=== PATIENT | male | born 1935 | race Caucasian/White ===

== ENCOUNTER 2018-02-01 10:34 | Outpatient (CLI) | payer MEDICARE ==
[~2018-02-01] VITALS: Ht 177.8 cm; Wt 77.3 kg
--- NOTE | ~2018-02-01 | OP ---
PATIENT NAME: JA HATCH MEDICAL RECORD: [id number] :34 LOCATION:D.CAT ADMISSION DATE: SURGEON: GLENNA RAZO MD DATE OF OPERATION: 02/01/2018 PROCEDURE: Left heart catheterization, selective coronary angiography, right femoral artery approach. CATHETERS: A 5-Singaporean sheath, 5/4 left and right Benson. The procedure was well tolerated. We proceeded immediately to do PTCA stenting after the procedure was finished. FINDINGS: Left ventriculography in the 30-degree BO view shows severe diffuse global hypokinesis. Overall, LV function is reduced. Estimated EF 20%. CORONARY ANATOMY: LEFT MAIN: Left main fills, which showed about 30% distal stenosis. LAD: Fills for a short period of time then proceeding to be competitive flow. CIRCUMFLEX: Fills for a short period of time, is totally occluded. RIGHT CORONARY ARTERY: Totally occluded in its mid portion. SAPHENOUS VEIN GRAFT: Saphenous vein graft to the right shows a patent stent, but was typical diffuse distal disease, diabetic type. CIRCUMFLEX: Circumflex graft has an ostial stenosis about 90%, fairly discrete. SMITH to LAD is widely patent. IMPRESSION: Severe cardiomyopathy. PLAN: Intervention of the saphenous graft to the circumflex momentarily. DESCRIPTION OF PROCEDURE: A 5-Singaporean sheath was exchanged for a 6-Singaporean sheath. A JR4 guiding catheter provided good guide catheter support followed by 300-cm Whisper wire, which was placed across the totally occluded saphenous vein graft, circumflex, distal portion of this vessel. Stent deployed was a 3.0 x 15 mm Integrity nondrug eluting stent up to 14 atmospheres. Final angiography shows excellent resolution of a 90% plus stenosis, no significant residual. VIBHA flow was 3 throughout the procedure. Plavix was loaded in the lab. Sheath closed with Exoseal device. TRANSINT:[id number] Voice Confirmation ID: [id number] DOCUMENT ID: [id number] GLENNA ARZO MD at 1412 CC: [id number] DICTATION DATE: 02/01/18 1405 CLINICAL NURSING INTERN: 02/01/18 1440 DEP CLI 02/01/18 [id number] [place] [address]
--- NOTE | ~2018-02-01 | HEMODYNAMI ---
PATIENT:JA HATCH MEDICAL RECORD: [id number] : 34 LOCATION:DRupalCAT ADMISSION DATE: 02/01/18 Generatedon:02/01/201814:04 Patient name: JA HATCH Patient #: [id number] SSN: : [id number] Date of study: 02/01/2018 Page: Of Hemodynamic Procedure Report Patient Data Patient Demographics Procedure consent was obtained First Name: JA Gender: Male Last Name: HOLDEN : 1935 [facility] Initial: E Age: 82 year(s) Patient #: [id number] Race: Additional ID: [id number] Contact details Address: [address] [place] [address] [place] State: [place] City: [place] Zip code: [address] Past Medical History History of disease Date Diagnosis Comments CAD Allergies Allergen Reaction Date Comments Reported Penicillins 06/03/2015 Vancomycin 06/03/2015 Other allergy 06/03/2015 WARFARIN, CEFEPINE Other allergy 02/01/2018 cefepime, coumadin, PCN, Vancomycin Admission Admission Data Admission Date: 02/01/2018 Admission Time: 10:34 Height (in.): 61 BSA: 1.77 (m2) Height (cm.): 154.94 BMI: 32.5 (kg/m2) Weight (lbs.): 172 Weight (kg.): 78.02 Procedure Procedure Types Cath Procedure Diagnostic Procedure LHC LHC w/Coronaries w/Grafts Sedation Charges Moderate Sedation up to 15 minutes PCI Procedure Coronary Stent AMI/SVG/ENGINEERING DRAWINGS CHECKER PTCA or Stent SVG-BMS/LISA Initial Procedure Description Procedure Date Procedure Date: 02/01/2018 Procedure Start Time: 13:29 Procedure End Time: 13:59 Procedure Staff Name Function Berto Whittaker MD Performing Physician Eliza Burns RT Monitor Goldie Rivera RN Nurse Cary Osborne RT Scrub Procedure Data Cath Procedure Fluoroscopy Diagnostic fluoroscopy Total fluoroscopy Time: 9.8 time: 9.8 min min Diagnostic fluoroscopy Total fluoroscopy dose: dose: 1355 mGy 1355 mGy Contrast Material Contrast Material Type Amount (ml) Isovue 300 151 Entry Location Entry Primary Successful Side Size Upsize Upsize Entry Closure Succes sful Closure Location (Fr) 1 (Fr) 2 (Fr) Remarks Device Remarks Femoral Right 5 Fr 6 Fr artery Short Estimated blood loss: 10 ml Diagnostic catheters Device Type Used For End Catheter Placement MULTIPACK JL 4.0 5Fr Procedure catheter MULTIPACK 3DRC 5Fr Procedure catheter MULTIPACK Pigtail 5 Fr Ventriculography catheter Procedure Complications No complications Procedure Medications Medication Administration Route Dosage Oxygen NC 3 l/min Lidocaine 2% added to field 20 Heparin Flush Bag added to field 2 bags (1000units/500ml NS) 0.9% NaCl I.V. 100 ml/hr Versed I.V. 0.5 mg Fentanyl I.V. 25 mcg Heparin Bolus I.V. 4000 units Integrilin (Bolus I.V. 6.8 ml 2mg/ml) Versed I.V. 0.5 mg Fentanyl I.V. 25 mcg Plavix P.O. 600 mg Hemodynamics Rest BSA: 1.77 (m2) O2 Consumption: Estimated: 197.31 (ml/min) O2 Consumption indexed : Estimated:111.47 (ml/min/m) Heart Rate: 64 (bpm) Pressure Samples Time Site Value (mmHg) Purpose Heart Use Rate(bpm) 13:43 LV 121/22,22 Snapshot 67 13:44 AO 112/57(80) Pullback 58 Gradients Valve Time Site Site 2 Mean SEP/DFP Peak To Heart Use 1 (mmHg) (sec/min) Peak Rate (mmHg) (bpm) Aortic 13:44 LV AO 2 8 58 112/57(80) Calculations Valve P-P Mean Valve Index Valve Source Name Gradient Area Flow (cm2) Aortic 2 2 Snapshots Pre Cath Intra NCS Post Cath Vital Signs Time Heart Resp SPO2 etCO2 NIBP (mmHg) Rhythm Pain Sedation Rate (ipm) (%) (mmHg) Status Level (bpm) 13:20:25 63 19 96 19.4 150/63(117) NSR 0 (11) 10(A) , No pain 13:24:47 61 23 95 9.7 143/63(121) NSR 0 (11) 10(A) , No pain 13:29:11 61 18 95 14.2 141/55(107) NSR 0 (11) 10(A) , No pain 13:33:36 61 17 91 0 118/56(93) NSR 0 (11) 9(A) , No pain 13:37:50 65 19 92 0 122/60(107) NSR 0 (11) 9(A) , No pain 13:42:06 60 19 95 20.9 118/61(99) NSR 0 (11) 9(A) , No pain 13:46:22 63 15 92 0 117/58(105) NSR 0 (11) 9(A) , No pain 13:50:40 63 17 93 19.4 133/53(98) NSR 0 (11) 9(A) , No pain 13:55:00 61 16 95 12 139/57(108) NSR 0 (11) 9(A) , No pain 13:59:20 61 16 96 11.2 144/68(104) NSR 0 (11) 10(A) , No pain Medications Time Medication Route Dose Verified Delivered Reason Notes Effectiveness by by 13:03:06 Oxygen NC 3 Berto Amezcua used for l/min St Diomedes Rivera RN procedure 13:25:12 Lidocaine 2% added 20ml Berto Robertsonory for local to vial [facility] anesthetic field MD LOREDO 13:25:19 Heparin Flush added 2 Berto Berto used for Bag to bags [facility] procedure (1000units/500ml field MD LOREDO NS) 13:25:28 0.9% NaCl I.V. 100 Berto Amezcua Per physician ml/hr [facility] Diomedes Rivera RN, MD 13:30:36 Versed I.V. 0.5 Berto [place] for sedation mg [facility] Diomedes Rivera RN, MD 13:30:42 Fentanyl I.V. 25 Berto Buffie for sedation mcg [facility] Diomedes Rivera RN, MD 13:36:33 Versed I.V. 0.5 Berto [place] for sedation mg [facility] Diomedes Rivera RN, MD 13:36:36 Fentanyl I.V. 25 Berto Amezcua for sedation mcg [facility] Diomedes Rivera RN, MD 13:47:14 Heparin Bolus I.V. 4000 Berto [place] for verifi ed units St Diomedes Rivera RN anticoagulation with dr MD addison 13:48:28 Integrilin I.V. 6.8 Berto [place] for Wasted (Bolus 2mg/ml) ml St Diomedes Rivera RN antiplatelet 3.2 ml MD therapy of vial 14:00:27 Plavix P.O. 600 Berto Amezcua for mg [facility] Diomedes Rivera RN antiplatelet MD therapy Procedure Log Time Note 13:01:51 Patient Height : 61 inches 13:02:02 Patient Weight : 172 lbs 13:02:24 Diagnostic Cath status Elective 13:02:27 Cary Dylon RT(R) sent for patient. Start room use. 13:02:28 Time tracking: Regular hours (M-F 7:00 - 5:00) 13:02:33 Plan of Care:Hemodynamics will remain stable., Cardiac rhythm will remain stable., Comfort level will be maintained., Respiratory function will remain adequate., Patient/ family verbilizes understanding of procedure., Procedure tolerated without complication., Recovers from procedure without complications.. 13:02:49 Patient received from Pre/Post Procedure Room to CCL 2 Alert and oriented. Tansferred to table in Supine position. 13:02:50 Warm blankets applied, and andry hugger turned on for patient comfort. 13:03:06 Oxygen 3 l/min NC was administered by Goldie Rivera RN; used for procedure; 13:08:41 Correct patient and procedure confirmed by team. 13:08:43 Signed procedure consent form obtained from patient. 13:08:44 ECG and BP/O2 sat monitors applied to patient. 13:08:59 H&P Date Dictated: 01/26/2018 Within 30 days and on chart., H&P Addendum completed by physician on day of procedure. (MUST COMPLETE FOR ALL OUTPATIENTS). 13:09:01 Pre-procedure instructions explained to patient. 13:09:05 Family unavailable. 13:09:50 Patient allergic to Other allergycefepime, coumadin, PCN, Vancomycin 13:09:53 Is the patient allergic to Iodine/contrast media? No. 13:10:10 Was the patient premedicated? Yes 13:10:11 Is patient on blood thinner?Yes 13:10:35 eloquis on 01/29/18 13:10:38 Patient diabetic? Yes. 13:19:11 Vital chart was started 13:19:23 Baseline sample Acquired. 13:19:30 Rhythm: sinus rhythm 13:19:32 Full Disclosure recording started 13:19:49 If diabetic: On Metformin? Yes 13:19:52 If on Metformin: Last Dose? 01/30/2018 13:20:58 Snore? Yes 13:21:00 Sleep apnea? No 13:21:11 Airway obstruction? Yes Emphazema 13:21:16 Dentures? Yes in tight 13:21:21 Patient pain scale 0/10 ?. 13:21:31 IV patent on arrival in left forearm with 0.9% NaCl at [facility]. 13:25:12 Lidocaine 2% 20ml vial added to field was administered by Berto Whittaker MD; for local anesthetic; 13:25:19 Heparin Flush Bag (1000units/500ml NS) 2 bags added to field was administered by Berto Whittaker MD; used for procedure; 13:25:28 0.9% NaCl 100 ml/hr I.V. was administered by Goldie Rivera RN; Per physician; 13:28:39 Right groin area was prepped with chlora-prep and draped in sterile fashion 13:28:40 Alarms reviewed by R. N. 13:28:41 Sharps counted by scrub and verified by R.N. 13:28:41 Physician paged 13:28:42 Physician arrived 13:28:43 --------ALL STOP TIME OUT------ 13:28:47 Final Timeout: patient, procedure, and site verified with staff and physician. All members of the team are in agreement. 13:28:49 Right groin site verified by team. 13:28:55 Physical assessment completed. ASA score P 2 - A patient with mild systemic disease as per Berto Whittaker MD. 13:28:59 Sedation plan: IV Moderate Sedation Medication:Versed, Fentanyl 13:29:02 Use device set Femoral Dx 13:29:03 ACIST Syringe (48894) opened to sterile field. 13:29:04 Bag Decanter (2002S) opened to sterile field. 13:29:04 Medline Cath Pack ([id number]) opened to sterile field. 13:29:05 DIAGNOSTIC WIRE .035 260cm J wire (264867) opened to sterile field. 13:29:06 ACIST Hand Control (76620) opened to sterile field. 13:29:07 ACIST Manifold (15890) opened to sterile field. 13:29:07 DIAGNOSTIC Multipack 5Fr catheter set ([id number]) opened to sterile field. 13:29:09 Tegaderm 4 x 4 (1626W) opened to sterile field. 13:29:10 PERCUTANEOUS ENTRY 19GA needle opened to sterile field. 13:29:13 SHEATH Prelude 5Fr 0.035 (BRO-0L-84-035) opened to sterile field. 13:29:16 Procedure started. 13:29:29 Zero performed for pressure channel P1 13:29:40 Local anesthetic to right femoral artery with Lidocaine 2% by Berto Whittaker MD.INITIAL ACCESS ONLY 13:29:50 A 5 Fr sheath was inserted into the Right Femoral artery 13:30:36 Versed 0.5 mg I.V. was administered by Goldie Rivera RN; for sedation; 13:30:42 Fentanyl 25 mcg I.V. was administered by Goldie Rivera RN; for sedation; 13:30:47 A MULTIPACK JL 4.0 5Fr catheter was advanced over the wire and used for Procedure. 13:31:11 LCA angiography performed. 13:31:17 Catheter removed. 13:31:28 A MULTIPACK 3DRC 5Fr catheter was advanced over the wire and used for Procedure. 13:33:11 RCA angiography performed. 13:33:40 SVG to Circ angiography performed. 13:34:35 SMITH to LAD angiography performed. 13:36:33 Versed 0.5 mg I.V. was administered by Goldie Rivera RN; for sedation; 13:36:36 Fentanyl 25 mcg I.V. was administered by Goldie Rivera RN; for sedation; 13:40:14 SVG to RCA angiography performed. 13:41:18 Catheter removed. 13:41:49 A MULTIPACK Pigtail 5 Fr catheter was advanced over the wire and used for Ventriculography. 13:41:57 LV angiography performed. 13:44:40 EF : 20 % 13:44:55 Proceeding to intervention. 13:47:14 Heparin Bolus 4000 units I.V. was administered by Goldie Rivera RN; for anticoagulation; verified with dr addison 13:47:18 SHEATH 6Fr Prelude ([id number]) opened to sterile field. 13:47:19 WHISPER 300cm guide wire ([id number]) opened to sterile field. 13:47:20 INFLATOR Merit BasixCompak (IQ7505) opened to sterile field. 13:47:24 GUIDE 6FR JR 4.0 catheter (RN0XR35) opened to sterile field. 13:47:38 Sheath upsized to a 6 Fr Short. 13:47:49 6 Fr JR4 guide catheter was inserted over the wire 13:47:54 whisp wire advanced. 13:48:28 Integrilin (Bolus 2mg/ml) 6.8 ml I.V. was administered by Goldie Rivera RN; for antiplatelet therapy; Wasted 3.2 ml of vial 13:53:23 Place stent Inflation Number: 1 A INTEGRITY OTW 3.0 X 15 stent ([id number]) was prepped and advanced across the Undefined2. The stent was deployed at 14 JOSE CRUZ for 0:12 (min:sec). 13:54:11 EXOSEAL 6Fr (EX600) opened to sterile field. 13:55:44 Wire removed. 13:55:44 Guide catheter removed. 13:55:49 Procedure ended.(Physican Out) 13:56:00 Fluoroscopy time 09.80 minutes. 13:56:04 Fluoroscopy dose: 1355 mGy 13:56:04 Flurop Dose total: 1355 13:56:19 Contrast amount:Isovue 300 151ml. 13:56:21 Sharps counted by scrub and verified by R.N. 13:56:27 Insertion/operative site no bleeding no hematoma. 13:56:33 Post right femoral artery:stable 13:56:38 Post Procedure Pulses reassessed and unchanged 13:56:42 Post procedure rhythm: unchanged. 13:56:46 Estimated blood loss: 10 ml 13:56:48 Post procedure instruction explained to patient.Patient verbalizes understanding. 13:57:08 Procedure type changed to Cath procedure, Diagnostic procedure, LHC, LHC w/Coronaries w/Grafts, Sedation Charges, Moderate Sedation up to 15 minutes, PCI procedure, Coronary Stent, AMI/SVG/ENGINEERING DRAWINGS CHECKER PTCA or Stent, SVG-BMS/LISA Initial 13:57:22 Procedure and supply charges have been captured, reviewed, submitted and are correct. 13:59:27 Procedure Complication : No complications 13:59:30 Vital chart was stopped 13:59:30 See physician's report for complete and final results. 13:59:32 Report given to Pre/Post Procedure Room. 13:59:38 Patient transfered to Pre/Post Procedure Room with Stretcher. 13:59:40 Procedure ended. 13:59:40 Full Disclosure recording stopped 13:59:44 End room use (Document Last) 14:00:27 Plavix 600 mg P.O. was administered by Goldie Rivera RN; for antiplatelet therapy; Intervention Summary Intervention Notes Time ActionType Lesion and Equipment Action# Pressure Duration Attributes Used 13:53:23 Place stent Undefined2 INTEGRITY 1 14 00:13 OTW 3.0 X 15 stent ([id number]) Device Usage Item Name Manufacture Quantity Catalog Number Hospital Part Current M inimal Lot# / Charge Number Stock Stock Serial# Code ACIST Syringe Acist 1 68802 520676 061663 141569 2 0 (95667) Medical Systems Inc Bag Decanter Microtek 1 2001S 266216 55762 806688 5 () Medical Inc. Medline Cath Cardinal 1 [id number] 950272 63956 154576 5 Pack Health ([id number]) DIAGNOSTIC WIRE St [facility]arshad 1 790276 956849 438380 689280 3 0 .035 260cm J wire (883141) ACIST Hand Acist 1 58887 883007 017803 394110 5 Control (65381) Medical Systems Inc ACIST Manifold Acist 1 76045 072860 644105 526202 5 (71876) Medical Systems Inc DIAGNOSTIC Cardinal 1 [id number] 866061 41586 875422 3 0 Multipack 5Fr Health catheter set (DD7946) Tegaderm 4 x 4 3M 1 1626W 926236 781330 655231 5 (1626W) PERCUTANEOUS Cook Medical 1 Z63581 016139 834452 5 ENTRY 19GA needle SHEATH Prelude Merit 1 WYN-6V-21-035 250234 549102 046464 5 5Fr 0.035 Medical (RJR-5Y-19-035) MULTIPACK JL Cardinal 1 333381 5 4.0 5Fr Health catheter MULTIPACK 3DRC Cardinal 1 651633 5 5Fr catheter Health MULTIPACK Cardinal 1 546418 5 Pigtail 5 Fr Health catheter SHEATH 6Fr Merit 1 [id number] 365453 500040 463946 5 Prelude Medical ([id number]) WHISPER 300cm Cifuentes 1 [id number] 671494 826827 066730 5 guide wire Vascular ([id number]) INFLATOR Merit Merit 1 KW0516 469373 825976 885715 1 5 [facility] (ZF8234) GUIDE 6FR JR Medtronic 1 [id number] 272215 37958 945264 1 4.0 catheter ([id number]) INTEGRITY OTW Medtronic 1 [id number] 242317 620643 5 [id number] 3.0 X 15 stent ([id number]) EXOSEAL 6Fr Cardinal 1 EX600 193974 444614 338280 1 0 (EX600) Health Signature Audit [place] Stage Time Signature Unsigned Intra-Procedure 02/01/2018 Eliza Burns 2:04:19 PM RT(R) Signatures Monitor : Eliza Burns Signature : RT Date : Time : [address] [address]
[~2018-02-01 10:34] MED LIST: BAYER CHEWABLE81 MG PO; CINNAMON500 MG PO; FISH OIL 1,2001 CAP PO; GLIPIZIDE10 MG PO; GLUCOPHAGE1000 MG PO; LANTUS SOL100 UNIT/1 SQ; MULTIPLE VITAMI1 TA1 PO; NOVOLOG100 U/M1 SQ; RED YEAST RICE600 MG PO; VITAMIN B-1250 MG PO; ZANTAC150 MG PO
[2018-02-01] MEDS ORDERED: VITAMIN B-12500 MCG PO (10:52)
[2018-02-01] MEDS ORDERED: ELIQUIS2.5 MG PO (10:53)
[2018-02-01] MEDS ORDERED: FUROSEMIDE40 MG PO (10:53)
[2018-02-01] MEDS ORDERED: LISINOPRIL5 MG PO (10:54)
[2018-02-01] MEDS ORDERED: COREG6.25 MG PO (10:54)
[2018-02-01] MEDS ORDERED: LIPITOR40 MG PO (10:54)
[2018-02-01] MEDS ORDERED: ALDACTONE25 MG PO (10:54)
[2018-02-01 11:04] VITALS: BP 119/47; Ht 177.8 cm; Wt 77.3 kg
[2018-02-01 11:13] LABS: BASOPHILS 0 % (0-2); EOSINOPHILS 1.1 % (0-7); HEMATOCRIT 39.8 % (42.0-54.0); HEMOGLOBIN 13.6 g/dL (13.5-17.5); IMMATURE GRANULOCYTES 0.2 % (0-5); LYMPHOCYTES 27.6 % (15-50); MCH 33.3 pg (26.0-34.0); MCHC 34.2 g/dL (31.0-37.0); MCV 97.3 fL (80.0-100.0); NEUTROPHILS 61.1 % (40-80); PLATELET COUNT 169 10x3/uL (130-400); RBC 4.09 10x6/uL (4.20-6.10); RDW 12.7 % (11.5-14.5); WBC 8.9 10x3/uL (4.8-10.8)
[2018-02-01 11:21] LABS: ANION GAP 8.4 mmol/L (8-16); CARBON DIOXIDE 33.5 mmol/L (21.0-32.0); CREATININE - SERUM 1.1 mg/dL (0.6-1.3); POTASSIUM - SERUM 4.9 mmol/L (3.5-5.1)
== END 2018-02-01 18:12 | disposition home or self-care (01) ==
LOC: D.CATH 10:34
PROVIDERS: Internal Medicine Interventional Cardiology
DX: I25.119 Atherosclerotic heart disease of native coronary artery with unspecified angina pectoris (principal); E78.5 Hyperlipidemia, unspecified; I10 Essential (primary) hypertension; J44.9 Chronic obstructive pulmonary disease, unspecified; E11.9 Type 2 diabetes mellitus without complications; Z01.812 Encounter for preprocedural laboratory examination

== ENCOUNTER → 2018-10-12 08:48 | Outpatient (CLI) | payer MEDICARE ==
[2018-02-01 11:04] VITALS: BMI 24.4
[~2018-10-12 08:48] MED LIST changes: +ALDACTONE25 MG PO; +ANORO ELLIPTA1 EACH INH; +COREG6.25 MG PO; +ELIQUIS2.5 MG PO; +FUROSEMIDE40 MG PO; +LIPITOR40 MG PO; +LISINOPRIL5 MG PO; +OMEPRAZOLE40 MG PO; +SYNTHROID50 MCG PO; +TRESIBA FL100 UNIT/1 SC; +VITAMIN B-12500 MCG PO
--- NOTE | 2018-10-16 11:46 | ST ---
PATIENT:JA HATCH MEDICAL RECORD: [id number] SEX: M LOCATION:[facility] ORDER #: ADMISSION DATE: 10/12/18 AGE OF PATIENT: 83 REFERRING PHYSICIAN: INTERPRETING PHYSICIAN: RUBEN VASQUES MD DATE OF SERVICE: 10/12/2018 PROCEDURE: Nuclear stress test. INDICATIONS: Angina, coronary artery disease, shortness of breath, hypertension, and cardiomyopathy. The patient was exercised on standard Lexiscan protocol with 33 mCi injected at peak stress with sestamibi, 11 mCi were used previously for rest images. FINDINGS: Gated SPECT reveals a dilated cardiomyopathy, ejection fraction in the 17% range. SPECT imaging: Cardiolite was used as myocardial perfusion agent. There is a large fixed perfusion defect inferiorly compatible with previous inferior myocardial infarction; however, there is reversibility laterally and anteriorly suggestive of multivessel coronary artery disease. OVERALL IMPRESSION: This is a markedly abnormal nuclear stress test with a fixed lesion defect inferiorly, reversible ischemia anteriorly and laterally. Would suggest cardiac catheterization as a followup study. TRANSINT:[id number] Voice Confirmation ID: [id number] DOCUMENT ID: [id number] RUBEN VASQUES MD at 1146 CC: [id number] DICTATION DATE: 10/13/18 1346 COT ASSEMBLER: 10/14/[address] [facility] CLI 10/12/[address] [address]
== END | disposition home or self-care (01) ==
LOC: D.HCCARDIO 08:48
DX: I25.10 Atherosclerotic heart disease of native coronary artery without angina pectoris (principal)

== ENCOUNTER 2018-10-19 11:27 | Outpatient (CLI) | payer MEDICARE ==
[~2018-10-19] VITALS: Ht 180.3 cm; Wt 73.6 kg
--- NOTE | ~2018-10-19 | HEMODYNAMI ---
PATIENT:JA HATCH MEDICAL RECORD: [id number] : 33 LOCATION:[facility] ADMISSION DATE: 10/19/18 Generatedon:10/19/201814:29 Patient name: JA HATCH Patient #: [id number] SSN: : [id number] Date of study: 10/19/2018 Page: Of Hemodynamic Procedure Report Patient Data Patient Demographics Procedure consent was obtained First Name: JA Gender: Male Last Name: HOLDEN : 1935 Middle Initial: E Age: 83 year(s) Patient #: [id number] Race: Additional ID: [id number] Contact details [address]: [address] [place] [address] [place] State: [place] City: [place] Zip code: [address] Past Medical History History of disease Date Diagnosis Comments CAD Allergies Allergen Reaction Date Comments Reported Penicillins 06/03/2015 Vancomycin 06/03/2015 Other allergy 06/03/2015 WARFARIN, CEFEPINE Other allergy 02/01/2018 cefepime, coumadin, PCN, Vancomycin Other allergy 10/19/2018 Cefepine, PCN, Coumadin, Vancomycin Admission Admission Data Admission Date: 10/19/2018 Admission Time: 11:27 Lab Results Lab Result Date: 10/19/2018 Lab Result Time: 0:00 Biochemistry Name Units Result Min Max BUN mg/dl 19 --(----)*- 7 18 Creatinine mg/dl 1.1 --(--*-)-- 0.6 1.3 CBC Name Units Result Min Max Hemoglobin g/dl 11.8 *-(----)-- 13.5 17.5 Procedure Procedure Types Cath Procedure Diagnostic Procedure LHC LHC w/Coronaries w/Grafts Procedure Description Procedure Date Procedure Date: 10/19/2018 Procedure Start Time: 14:02 Procedure End Time: 14:25 Procedure Staff Name Function Berto Whittaker MD Performing Physician Eliza Burns RT Monitor Cary Osborne RT Scrub Julissa Jordan RT Scrub Link Lorigan RN Nurse Procedure Data Cath Procedure Fluoroscopy Diagnostic fluoroscopy Total fluoroscopy Time: time: 10.4 min 10.4 min Diagnostic fluoroscopy Total fluoroscopy dose: dose: 1222 mGy 1222 mGy Contrast Material Contrast Material Type Amount (ml) Isovue 300 133 Entry Location Entry Primary Successful Side Size Upsize Upsize Entry Closure Succes sful Closure Location (Fr) 1 (Fr) 2 (Fr) Remarks Device Remarks Femoral Right 5 Fr Exoseal artery Estimated blood loss: 10 ml Diagnostic catheters Device Type Used For End Catheter Placement MULTIPACK JL 4.0 5Fr Procedure catheter MULTIPACK 3DRC 5Fr Procedure catheter DIAGNOSTIC AR MOD 5Fr Procedure Catheter ([id number]) MULTIPACK Pigtail 5 Fr Procedure catheter Procedure Complications No complications Procedure Medications Medication Administration Route Dosage 0.9% NaCl I.V. 30 ml/hr Oxygen NC 3 l/min Heparin Flush Bag added to field 2 bags (1000units/500ml NS) Lidocaine 2% added to field 20 Benadryl I.V. 50 mg Versed I.V. 0.5 mg Fentanyl I.V. 25 mcg Hemodynamics Rest HGB: 11.8 (g/dl) Heart Rate: 74 (bpm) Pressure Samples Time Site Value (mmHg) Purpose Heart Use Rate(bpm) 14:07 AO 129/45(78) Snapshot 65 14:23 LV 122/8,22 Snapshot 63 14:23 AO 120/45(71) Pullback 64 14:23 LV 128/18,63 Pullback 64 Gradients Valve Time Site 1 Site 2 Mean SEP/DFP Peak To Heart Use (mmHg) (sec/min) Peak Rate (mmHg) (bpm) Aortic 14:23 LV AO 11 23 8 64 128/18,63 120/45(71) Calculations Valve P-P Mean Valve Index Valve Source Name Gradient Area Flow (cm2) Aortic 8 11 8 11 Snapshots Pre Cath Intra NCS Post Cath Vital Signs Time Heart Resp SPO2 etCO2 NIBP (mmHg) Rhythm Pain Sedation Rate (ipm) (%) (mmHg) Status Level (bpm) 13:37:03 62 16 99 0 125/60(94) NSR 0 (11) 10(A) , No pain 13:41:14 58 16 98 0 120/56(97) NSR 0 (11) 10(A) , No pain 13:45:20 76 30 96 0 134/68(100) NSR 0 (11) 10(A) , No pain 13:49:32 76 13 95 0 124/65(104) NSR 0 (11) 10(A) , No pain 13:53:44 69 13 96 0 132/59(94) NSR 0 (11) 10(A) , No pain 13:58:00 65 13 97 0 126/55(97) NSR 0 (11) 10(A) , No pain 14:02:12 65 26 97 0 120/62(105) NSR 0 (11) 10(A) , No pain 14:06:20 66 17 97 0 135/66(101) NSR 0 (11) 10(A) , No pain 14:10:34 66 15 94 0 130/63(106) NSR 0 (11) 10(A) , No pain 14:14:46 65 15 98 0 125/63(103) NSR 0 (11) 10(A) , No pain 14:18:58 63 16 99 0 133/60(113) NSR 0 (11) 10(A) , No pain 14:23:12 63 16 99 0 126/59(97) NSR 0 (11) 10(A) , No pain Medications Time Medication Route Dose Verified Delivered Reason Notes Effe ctiveness by by 13:43:27 0.9% NaCl I.V. 30 Link Link Per ml/hr Chace Mas physician RN RN 13:43:37 Oxygen NC 3 Link Link for low 02 l/min Chace gilbert RN RN 13:43:47 Heparin Flush added 2 Link Link used for Bag to bags Chace Mas procedure (1000units/500ml RN RN NS) 13:43:57 Lidocaine 2% added 20ml Link Link for local to vial Lorjimbo Mas anesthetic field RN RN 13:44:12 Benadryl I.V. 50 mg Link Link Per Chace Mas physician RN RN 13:59:56 Versed I.V. 0.5 Link Link for mg Chace Mas sedation RN RN 14:00:05 Fentanyl I.V. 25 Link Link for mcg Chace Mas sedation RN business process modeler Log Time Note 12:37:11 Diagnostic Cath Status : Elective 13:24:57 Link Mas RN sent for patient. Start room use. 13:24:59 Time tracking: Regular hours (M-F 7:00 - 5:00) 13:25:04 Plan of Care:Hemodynamics will remain stable., Cardiac rhythm will remain stable., Comfort level will be maintained., Respiratory function will remain adequate., Patient/ family verbilizes understanding of procedure., Procedure tolerated without complication., Recovers from procedure without complications.. 13:27:29 Patient received from Pre/Post Procedure Room to CCL 2 Alert and oriented. Tansferred to table in Supine position. 13:27:31 Warm blankets applied, and andry hugger turned on for patient comfort. 13:27:31 Correct patient and procedure confirmed by team. 13:27:34 Signed procedure consent form obtained from patient. 13:35:47 ECG and BP/O2 sat monitors applied to patient. 13:35:49 Vital chart was started 13:35:56 Baseline sample Acquired. 13:35:58 Full Disclosure recording started 13:36:16 H&P Date Dictated: 10/03/2018 Within 30 days and on chart., H&P Addendum completed by physician on day of procedure. (MUST COMPLETE FOR ALL OUTPATIENTS). 13:36:17 Pre-procedure instructions explained to patient. 13:36:21 Family in waiting room. 13:36:25 Patient NPO since Midnight. 13:37:10 Patient allergic to Other allergyCefepine, PCN, Coumadin, Vancomycin 13:37:16 Is the patient allergic to Iodine/contrast media? No. 13:37:19 Was the patient premedicated? Yes 13:37:22 Is patient on blood thinner?No 13:37:24 Patient diabetic? Yes. 13:37:25 If diabetic: On Metformin? Yes 13:37:32 If on Metformin: Last Dose? 10/17/2018 13:37:39 Snore? No 13:37:40 Sleep apnea? No 13:37:48 Airway obstruction? Yes COPD 13:38:01 IV patent on arrival in left forearm with 0.9% NaCl at [facility]. 13:38:09 Lab results completed and on chart. 13:40:28 Lab Result : Creatinine 1.1 mg/dl 13:40:28 Lab Result : BUN 19 mg/dl 13:40:29 Lab Result : Hemoglobin 11.8 g/dl 13:40:35 Right groin area was prepped with chlora-prep and draped in sterile fashion 13:40:37 Alarms reviewed by RRupal N. 13:40:37 Sharps counted by scrub and verified by R.N. 13:40:40 Physician paged 13:43:27 0.9% NaCl 30 ml/hr I.V. was administered by Link Mas RN; Per physician; 13:43:37 Oxygen 3 l/min NC was administered by Link Mas RN; for low 02 sats; 13:43:47 Heparin Flush Bag (1000units/500ml NS) 2 bags added to field was administered by Link Mas RN; used for procedure; 13:43:57 Lidocaine 2% 20ml vial added to field was administered by Link Mas RN; for local anesthetic; 13:44:04 Physician arrived 13:44:12 Benadryl 50 mg I.V. was administered by Link Mas RN; Per physician; 13:49:32 Zero performed for pressure channel P1 13:57:25 Pre procedure: right dorsailis pedis pulse 0-Absent 13:58:49 --------ALL STOP TIME OUT------ 13:58:49 Final Timeout: patient, procedure, and site verified with staff and physician. All members of the team are in agreement. 13:58:51 Right groin site verified by team. 13:58:56 Fire Safety Assessment: A--An alcohol-based skin anteseptic being used preoperatively., C--Open oxygen or nitrous oxide is being used., D--An ESU, laser, or fiber-optic light is being used. 13:59:00 Physical assessment completed. ASA score P 2 - A patient with mild systemic disease as per Berto Whittaker MD. 13:59:04 Sedation plan: IV Moderate Sedation Medication:Versed, Fentanyl 13:59:10 Use device set Femoral Dx 13:59:11 ACIST Syringe (02435) opened to sterile field. 13:59:12 Bag Decanter () opened to sterile field. 13:59:13 Medline Cath Pack ([id number]) opened to sterile field. 13:59:13 DIAGNOSTIC WIRE .035 260cm J wire (252331) opened to sterile field. 13:59:15 ACIST Hand Control (56717) opened to sterile field. 13:59:16 ACIST Manifold (58984) opened to sterile field. 13:59:16 DIAGNOSTIC Multipack 5Fr catheter set (JP1586) opened to sterile field. 13:59:18 Tegaderm 4 x 4 (1626W) opened to sterile field. 13:59:20 SHEATH 5FR [place] (ORP034) opened to sterile field. 13:59:56 Versed 0.5 mg I.V. was administered by Link Mas RN; for sedation; 14:00:05 Fentanyl 25 mcg I.V. was administered by Link Mas RN; for sedation; 14:01:48 Procedure started. 14:02:02 Local anesthetic to right femoral artery with Lidocaine 2% by Berto Whittaker MD.INITIAL ACCESS ONLY 14:02:14 A 5 Fr sheath was inserted into the Right Femoral artery 14:05:09 A MULTIPACK JL 4.0 5Fr catheter was advanced over the wire and used for Procedure. 14:05:15 LCA angiography performed. 14:05:53 Catheter removed. 14:06:01 A MULTIPACK 3DRC 5Fr catheter was advanced over the wire and used for Procedure. 14:07:55 RCA angiography performed. 14:11:46 SMITH to LAD angiography performed. 14:12:22 Catheter exchanged over wire. 14:16:30 A DIAGNOSTIC AR MOD 5Fr Catheter (009170I) was advanced over the wire and used for Procedure. 14:19:01 SVG to RCA angiography performed. 14:19:13 Catheter removed. 14:19:21 A MULTIPACK Pigtail 5 Fr catheter was advanced over the wire and used for Procedure. 14:21:17 Aortic Root visualized 14:21:57 SVG to Circ occluded. 14:22:39 LV gram done using BO 14:23:50 EF : 20 % 14:23:53 LV hemodynamics recorded. 14:24:07 Sheath removed intact; hemostasis achieved with Exoseal to the Right Femoral artery. 14:24:14 EXOSEAL 5Fr (EX500) opened to sterile field. 14:24:17 Procedure ended.(Physican Out) 14:24:44 Fluoroscopy time 10.40 minutes. 14:24:49 Flurop Dose total: 1222 14:24:49 Fluoroscopy dose: 1222 mGy 14:24:53 Contrast amount:Isovue 300 133ml. 14:24:54 Sharps counted by scrub and verified by R.N. 14:24:56 Insertion/operative site no bleeding no hematoma. 14:24:59 Post-op/insertion site Right Femoral artery dressed using a 4 x 4 and Tegaderm. 14:25:01 Post Procedure Pulses reassessed and unchanged 14:25:05 Post-procedure physical assessment completed. ASA score P 2 - A patient with mild systemic disease as per Berto Whittaker MD. 14:25:10 Post procedure rhythm: unchanged. 14:25:12 Estimated blood loss: 10 ml 14:25:13 Post procedure instruction explained to patient.Patient verbalizes understanding. 14:25:22 Procedure and supply charges have been captured, reviewed, submitted and are correct. 14:25:45 Procedure Complication : No complications 14:25:47 Vital chart was stopped 14:25:48 See physician's report for complete and final results. 14:25:50 Report given to Pre/Post Procedure Room. 14:25:53 Patient transfered to Pre/Post Procedure Room with Stretcher. 14:25:55 Procedure ended. 14:25:55 Full Disclosure recording stopped 14:25:59 End room use (Document Last) 14:25:59 End room use (Document Last) Device Usage Item Name Manufacture Quantity Catalog Hospital Part Current Minimal L ot# / Number Charge Number Stock Stock Serial# Code ACIST Acist 1 82289 658298 700730 775588 20 Syringe Medical (00626) Systems Inc Bag Microtek 1 768589 52299 808545 5 Decanter Medical Inc. () Medline Medline 1 [id number] 498051 83531 138381 5 Cath Pack ([id number]) DIAGNOSTIC St Harshad 1 093548 873137 016232 419152 30 WIRE .035 260cm J wire (525246) ACIST Hand Acist 1 98133 353605 613110 709215 5 Control Medical (15369) Systems Inc ACIST Acist 1 35894 875244 817566 801692 5 Manifold Medical (76686) Systems Inc DIAGNOSTIC Cardinal 1 AZ8440 652708 63761 248213 30 Moodsnap Health 5Fr catheter set (VF2202) Tegaderm 4 3M 1 1626W 083677 306370 794734 5 x 4 (1626W) SHEATH 5FR Terumo 1 QNA378 584331 050384 337037 5 [place] (ZEF789) MULTIPACK Cardinal 1 992403 5 JL 4.0 5Fr Health catheter MULTIPACK Cardinal 1 877086 5 3DRC 5Fr Health catheter DIAGNOSTIC Cardinal 1 [id number] 024659 301666 657707 15 AR MOD 5Fr Health Catheter (785957S) MULTIPACK Cardinal 1 800355 5 Pigtail 5 Health Fr catheter EXOSEAL 5Fr Cardinal 1 EX500 216508 042042 828035 10 (EX500) Health Signature Audit [place] Stage Time Signature Unsigned Intra-Procedure 10/19/2018 Eliza Burns 2:29:01 PM RT(R) Signatures Monitor : Eliza Burns Signature : RT Date : Time : [id number] [place] [address]
[~2018-10-19 11:27] MED LIST changes: -ANORO ELLIPTA1 EACH INH; -OMEPRAZOLE40 MG PO; -SYNTHROID50 MCG PO; -TRESIBA FL100 UNIT/1 SC
[2018-10-19] MEDS ORDERED: TRESIBA FL100 UNIT/1 SC (11:59)
[2018-10-19] MEDS ORDERED: ANORO ELLIPTA1 EACH INH (12:00)
[2018-10-19] MEDS ORDERED: SYNTHROID50 MCG PO (12:01)
[2018-10-19] MEDS ORDERED: OMEPRAZOLE40 MG PO (12:01)
[2018-10-19 12:13] VITALS: BP 127/92; Ht 180.3 cm; Wt 73.6 kg
[2018-10-19 12:18] LABS: BASOPHILS 0 % (0-2); EOSINOPHILS 1.2 % (0-7); HEMATOCRIT 35.3 % (42.0-54.0); HEMOGLOBIN 11.8 g/dL (13.5-17.5); IMMATURE GRANULOCYTES 0.2 % (0-5); LYMPHOCYTES 24.3 % (15-50); MCH 32.3 pg (26.0-34.0); MCHC 33.4 g/dL (31.0-37.0); MCV 96.7 fL (80.0-100.0); MEAN PLATELET VOLUME 9.4 fL (7.4-10.4); MONOCYTES 9.9 % (2-11); NEUTROPHILS 64.4 % (40-80); PLATELET COUNT 157 10x3/uL (130-400); RBC 3.65 10x6/uL (4.20-6.10); WBC 8.7 10x3/uL (4.8-10.8)
[2018-10-19 12:37] LABS: ANION GAP 13.7 mmol/L (8-16); CALCIUM 8.8 mg/dL (8.5-10.1); CARBON DIOXIDE 26.7 mmol/L (21.0-32.0); CREATININE - SERUM 1.1 mg/dL (0.6-1.3); POTASSIUM - SERUM 4.4 mmol/L (3.5-5.1)
--- NOTE | 2018-10-19 14:45 | NUR ---
1445 RECIEVED TO ROOM VIA STRETCHER FROM FRONT OFFICE SUPERVISOR WITH 5 FR EXOSEAL R/GROIN CDI NO BLEEDING OR HEMATOMA NOTED. PATIENT CONNECTED TO MONITOR FOR OBSERVATION WITH HR 64 BP 122/63. DR RAZO PRESENT WITH FAMILY.
--- NOTE | 2018-10-19 14:58 | NUR ---
5 FR EXOSEAL R/GROIN REMAINS CDI WITH NO BLEEDING. PATIENT DENIED PAIN OR NEEDS CALL LIGHT IN REACH
--- NOTE | 2018-10-19 15:28 | NUR ---
5 FR EXOSEAL R/GROIN IS CDI WITH VSS. PATIENT DENIED PAIN OR NEEDS. CALL LIGHT IN REACH
--- NOTE | 2018-10-19 15:53 | NUR ---
RESTING QUIETLY WITH NO DISTRESS NOTED. 5 FR EXOSEAL R/GROIN IS CDI FAMILY IS PRESENT AT BEDSIDE
--- NOTE | 2018-10-19 16:09 | NUR ---
REPOSITIONED TO [facility] UP 30 DEGREES FOR COMFORT. 5 FR EXOSEAL R/GROIN REMAINS CDI WITH NO COMPLAINTS. SANDWICH AND SODA TO BEDSIDE
--- NOTE | 2018-10-19 16:47 | NUR ---
VERBAL AND WRITTEN DISCHARGE GONE OVER WITH PATIENT AND FAMILY. PIV REMOVED WITH DRESSING APPLIED. 6 FR EXOSEAL R/GROIN REMAINS CDI WITH NO BLEEDING OR HEMATOMA NOTED.
--- NOTE | 2018-10-19 17:15 | NUR ---
PATIENT LEFT VIA WC TO PARKING FOR TRANSPORT HOME NO DISTRESS R/GROIN CDI
--- NOTE | 2018-10-24 14:51 | OP ---
PATIENT NAME: JA HATCH MEDICAL RECORD: [id number] :33 LOCATION:[facility] ADMISSION DATE: SURGEON: GLENNA RAZO MD DATE OF OPERATION: 10/19/2018 PROCEDURE: Left heart catheterization, selective coronary angiography, right femoral artery approach. CATHETERS: A 5-Gabonese sheath, 5/4 left and right Benson, 5/4 pig. The procedure was well tolerated. The patient returned to the [place]. Sheath removed. ExoSeal device placed. FINDINGS: Left ventriculography shows severe global hypokinesis. Overall LV function, no better than 15% to 20%. AORTIC ROOT: Aortic root injection was performed to assess patency of bypass grafts. This showed right bypass graft only. CORONARY ANATOMY: LEFT MAIN: Fills for a short period of time. LAD: LAD fills for a short period of time, totally occluded. CIRCUMFLEX: Short period of time, totally occluded. RIGHT CORONARY ARTERY: Fills for a short period of time, totally occluded. SAPHENOUS GRAFT: Saphenous graft to the right is widely patent, has severe diffuse typical diabetic disease distally. SMITH to LAD. He is widely patent. The LAD itself appears had no significant stenosis, does give collaterals to the circumflex via left to left collaterals. IMPRESSION: Severe ischemic cardiomyopathy, despite maximum medical therapy that does not appear to be improved. TRANSINT:[id number] Voice Confirmation ID: [id number] DOCUMENT ID: [id number] GLENNA RAOZ MD at 1451 CC: [id number] DICTATION DATE: 10/19/18 1434 CLOTH PACKER: 10/19/182026 DEP CLI 10/19/18 [id number] [place] [address]
== END 2018-10-19 17:16 | disposition home or self-care (01) ==
LOC: D.CATH 11:27
PROVIDERS: Internal Medicine Interventional Cardiology
DX: I25.5 Ischemic cardiomyopathy (principal); I25.119 Atherosclerotic heart disease of native coronary artery with unspecified angina pectoris; Z95.1 Presence of aortocoronary bypass graft; Z01.812 Encounter for preprocedural laboratory examination